=== PATIENT | female | born 1980 ===

== ENCOUNTER → 2024-01-05 11:25 | Outpatient (CLI) | payer OTHER, SELFPAY ==
--- NOTE | 2024-01-05 11:28 | DI.RAD.S_ITS ---
PROCEDURE: XR FOOT LT MIN 3V INDICATIONS: foot injury TECHNIQUE: 3 views of the foot were acquired. COMPARISON: None. FINDINGS: Bones: Linear ossific density at the medial aspect of the base of the 1st metatarsal seen best on oblique view, possible small avulsion fracture. No suspicious bony lesions. Small plantar calcaneal enthesophyte. Soft tissues: No tibiotalar joint effusion. Achilles tendon appears normal. IMPRESSION: Query avulsion fracture at the medial base of the 1st metatarsal. Correlate with point tenderness. No other acute findings identified. Approved by: Annemarie Pederson M.D.,Ph.D. on 01/05/2024 at 23:52
== END ==
LOC: RAD 11:27
PROVIDERS: Referring Provider Nurse Practitioner Family; Visit Provider Nurse Practitioner Family
DX: S99.929A Unspecified injury of unspecified foot, initial encounter (principal); X58.XXXA Exposure to other specified factors, initial encounter
CPT/HCPCS: 73630